=== PATIENT | male | born 1965 | race Caucasian/White ===

== ENCOUNTER 2022-06-18 11:05 | Day surgery (SDC) | payer OTHER ==
[~2022-06-18] VITALS: Ht 182.9 cm; Wt 115.4 kg
[2022-06-18] MEDS ORDERED: FLUT1DIS2 (11:32)
[2022-06-18] MEDS ORDERED: Children's Che1 EAC1 (11:33)
[2022-06-18] MEDS ORDERED: ZINC50 M3 (11:33)
[2022-06-18] MEDS ORDERED: TIMO.25OPS (11:33)
[2022-06-18] MEDS ORDERED: MONT10T (11:33)
[2022-06-18] MEDS ORDERED: C COMPLEX (11:33)
[2022-06-18] MEDS ORDERED: MULTI-VITAMIN1 EAC2 (11:34)
== END 2022-06-18 13:20 | disposition home or self-care (01) ==
LOC: ORSCSDS 11:05
PROVIDERS: Internal Medicine Gastroenterology
PROC: 0DBP8ZX Excision of Rectum, Via Natural or Artificial Opening Endoscopic, Diagnostic (ICD-10-PCS; principal; 2022-06-18 12:30)
DX: Z12.11 Encounter for screening for malignant neoplasm of colon (principal); Z86.010 Personal history of colon polyps; K62.1 Rectal polyp; K57.30 Diverticulosis of large intestine without perforation or abscess without bleeding; K64.8 Other hemorrhoids; J45.909 Unspecified asthma, uncomplicated; Z79.899 Other long term (current) drug therapy
CPT/HCPCS: 88305; J0330; J0461; J2405; J2704; J7120; Q9968

== ENCOUNTER → 2024-05-30 | Outpatient (CLI) | payer OTHER ==
[~2024-05-30] MED LIST: C COMPLEX; Children's Che1 EAC1; FLUT1DIS2; MONT10T; MULTI-VITAMIN1 EAC2; TIMO.25OPS; ZINC50 M3
[2024-05-30 11:47] LABS: BASOPHILS ABSOLUTE AUTO 0.06 K/mm3 (0.00-0.23); BASOPHILS PERCENT AUTO 1 % (0-2); EOSINOPHILS PERCENT AUTO 5 % (0-6); Hematocrit 44.7 % (37.0-53.0); Hemoglobin 15.5 g/dL (13.5-17.5); IMMATURE GRAN ABSOLUTE AUTO 0.02 K/mm3 (0.00-0.10); IMMATURE GRAN PERCENT AUTO 0 % (0-1); LYMPHOCYTES ABSOLUTE AUTO 2.26 K/mm3 (0.84-5.20); LYMPHOCYTES PERCENT AUTO 35 % (21-46); MONOCYTES ABSOLUTE AUTO 0.59 K/mm3 (0.16-1.47); MONOCYTES PERCENT AUTO 9 % (4-13); Mean Corpuscular HGB 30.9 pg (26.0-34.0); Mean Corpuscular HGB Conc 34.7 g/dL (31.5-36.5); Mean Corpuscular Volume 89 fL (80-100); Mean Platelet Volume 11.4 fL (9.1-12.4); NEUTROPHILS ABSOLUTE AUTO 3.18 K/mm3 (1.96-9.15); NEUTROPHILS PERCENT AUTO 50 % (41-73); Platelet Count 260 K/mm3 (150-400); RDW Coefficient Variation 13.1 % (11.7-14.2); RDW Standard Deviation 42.6 fL (35.1-46.3); Red Blood Cell Count 5.02 M/mm3 (4.30-5.90); White Blood Cell Count 6.41 K/mm3 (4.00-11.30)
[2024-05-30 11:59] LABS: Albumin, Blood 3.8 g/dL (3.4-5.0); Albumin/Globulin Ratio 0.8 (0.8-1.8); Bilirubin, Total 0.7 mg/dL (0.1-1.0); Bun/Creatinine Ratio 21.2 (12.0-20.0); Calcium, Blood 9.6 mg/dL (8.5-10.1); Creatinine, Blood 0.9 mg/dL (0.60-1.20); Globulin, Blood 4.8 g/dL (2.2-4.0); Potassium, Blood 4.4 mmol/L (3.5-5.5); Total Protein, Blood 8.6 g/dL (6.4-8.2)
[2024-06-03 21:54] LABS: ALBUMIN 4.39 g/dL (3.75-5.01); ALPHA 2 GLOBULIN 0.92 g/dL (0.48-1.05); BETA GLOBULIN 1.11 g/dL (0.48-1.10); GAMMA 1.19 g/dL (0.62-1.51); IMMUNOFIXATION REFLEX Not Done; TOTAL PROTEIN,SERUM 7.9 g/dL (6.3-8.2)
== END | disposition home or self-care (01) ==
LOC: LAB SHORT 10:34
PROVIDERS: Physician Assistant
DX: R10.9 Unspecified abdominal pain (principal)
CPT/HCPCS: 80053; 85025